=== PATIENT | female | born 1985 | race Caucasian/White ===

== ENCOUNTER 2023-05-29 07:31 | Outpatient (AMB) | payer OTHER, SELFPAY ==
--- NOTE | 2023-05-29 07:09 | A.OFFVIS_ITS ---
Intake Intake Visit Reasons: discuss leave of absence for anxiety-Iphone Allergies penicillin V Allergy (Unknown, Verified 07/20/22 08:14) unknown - childhood Penicillins [PENICILLINS] Allergy (Unknown, Unverified 07/20/22 08:14) UNKNOWN HPI discuss leave of absence for anxiety-Iphone HPI Details recently having panic attacks, had a seizure, thought to be due related to stress. Pt has seen her neurologist, they are switching seizure medication . Pt reports her neurologist will write a letter for keeping her out of work for a awhile (severe stress). The plan is for treating seizure disorder fist, then the anxiety. Pt reports that she has access to a therapist, if she wants one. Denies any SI or HI. Pt reports she will get her labs (ordered today), and will for up with me for a PE. Pt is currently looking for a new job. [facility] Family History Mother Mental health disorder Maternal Grandmother Mental health disorder Social History (Updated 07/20/22 @ 08:15 by Evangelina Wylie MA) Housing: House Alcohol intake: current Alcohol intake frequency: a few times a week Patient Tobacco Use Status: Former Tobacco user Quit Date: quit 9 years ago e-Cigarette/Vaping Use: Currently Using (sometimes ) Second Hand Smoke Exposure: No service: No Current occupational status: employed Current occupation: [employer] Current occupational exposures/hazards: No Cognitive needs: No Hearing needs: No Vision needs: No Assessment & Plan Assessment & Plan (1) Anxiety: Code(s): F41.9 - Anxiety disorder, unspecified Plan: continue same regime currently, will follow up, pt has access to a therapist, is currently looking for a new job (2) Seizure disorder: Code(s): G40.909 - Epilepsy, unspecified, not intractable, without status epilepticus Plan: follows up with neurology Orders: Orders Comprehensive [place]. Panel Fast Today Z00.00 - Encounter for general adult medical examination without abnormal findings Complete Blood Count Auto Diff Today Z00.00 - Encounter for general adult medical examination without abnormal findings TSH reflex Free T4 Today Z00.00 - Encounter for general adult medical examination without abnormal findings UA CC w/rflx Micro + Cult Today Z00.00 - Encounter for general adult medical examination without abnormal findings Lipid Panel Today Z00.00 - Encounter for general adult medical examination without abnormal findings Telehealth Telehealth Location of provider rendering services: practice address Location of patient: address on file Patient Identification confirmed using: Name, : Yes Telehealth method: video Patient verbally consented to treatment: Yes Patient verbally consented to billing insurance company: Yes Patient informed of any privacy concerns related to visit: Yes Minutes spent on Phone/Video with Pt.: 10 Coding Level of Care Code Tele Est Pt Level 3 (99317) Diagnoses Anxiety F41.9 Seizure disorder G40.909
== END 2023-05-29 08:17 | disposition home or self-care (01) ==
LOC: HO.HMGC 07:31
PROVIDERS: PCP Nurse Practitioner Family; Visit Provider Nurse Practitioner Family
DX: F41.9 Anxiety disorder, unspecified (principal); G40.909 Epilepsy, unspecified, not intractable, without status epilepticus
CPT/HCPCS: 99213

== ENCOUNTER 2023-08-21 07:04 | Outpatient (REF) | payer OTHER, SELFPAY ==
[2023-08-21 12:06] LABS: Appearance Urine Turbid; Color Urine Dark Yellow; Glucose Urine UA Negative (Negative); Leukocyte Esterase Urine Moderate (2+) (Negative); Nitrite Urine Negative (Negative); Specific Gravity - Urine >= 1.030 (1.005-1.025); UMIC TRIGGER UACC YES; Urine Blood Negative (Negative); Urine Ketones Trace mg/dL (Negative); Urine Protein 30 (1+) mg/dL (Neg-Trace)
[2023-08-21 12:07] LABS: MANUAL DIFF FLAG NO
[2023-08-21 12:14] LABS: Basophils Absolute Auto 0.1 X10*3/uL (0.0-0.2); Basophils Percent Auto 0.7 % (0-2); Eosinophils Absolute Auto 0.1 X10*3/uL (0.0-0.4); Eosinophils Percent Auto 1.2 % (0-4); Hematocrit 37.5 % (37.0-47.0); Hemoglobin 11.9 g/dl (12.0-16.0); Imm Gran Abs Auto 0.02 X10*3/uL (0.00-0.03); Imm Gran Pct Auto 0.2 % (0.0-0.4); Lymphocytes Percent Auto 23.9 % (20-40); Mean Corpuscular HGB Conc 31.7 g/dl (31.0-35.0); Mean Corpuscular Hemoglobin 27.9 pg (27.0-33.0); Mean Platelet Volume 10.3 fL (9.4-12.3); Monocytes Absolute Auto 0.5 X10*3/uL (0.1-1.2); Monocytes Percent Auto 5.4 % (2-11); Neutrophils Absolute Auto 5.8 x10*3/uL (2.0-8.3); Neutrophils Percent Auto 68.6 % (45-73); Platelet Count 350 X10*3/uL (160-400); Red Blood Count 4.26 X10*6/uL (4.20-5.50); Red Cell Distribution Width 13.3 % (11.0-16.0); White Blood Count 8.5 X10*3/uL (4.8-10.8)
[2023-08-21 12:38] LABS: Bacteria Urine 4+ (None Seen); RBC Urine 0-2 /HPF (0-2); UACC Culture Trigger YES; WBC Urine 21-50 /HPF (0-5)
[2023-08-21 13:13] LABS: Alanine Aminotransferase 13 U/L (0-31); Albumin Level 4.1 g/dL (3.5-5.0); Alkaline Phosphatase 82 U/L (39-117); Anion Gap 13 (12-20); Aspartate Amino Transferase 13 U/L (5-31); Bilirubin Total 0.2 mg/dL (0.0-1.0); Blood Urea Nitrogen 15 mg/dL (9-16); Carbon Dioxide 18 mmol/L (22-29); Chloride 113 mmol/L (96-108); Cholesterol 140 mg/dL (<200); Estimated Glomerular Filt Rate > 60; Glucose Fasting 94 mg/dL (60-99); HDL Cholesterol 44 mg/dL (>40); LDL Cholesterol Calculated 77 mg/dL (<100); Sodium 140 mmol/L (135-145); TSH reflex Free T4 0.97 uIU/mL (0.32-4.0); Total Protein 6.8 g/dL (6.5-8.0); Triglycerides 96 mg/dL (<150)
== END 2023-08-21 07:05 | disposition home or self-care (01) ==
LOC: HO.WFDLDS 07:04
PROVIDERS: Visit Provider Nurse Practitioner Family
DX: Z00.00 Encounter for general adult medical examination without abnormal findings (principal); Z13.6 Encounter for screening for cardiovascular disorders; R82.90 Unspecified abnormal findings in urine
CPT/HCPCS: 36415; 80053; 80061; 81001; 81003; 84443; 85025; 87086

== ENCOUNTER 2024-06-18 15:05 | Outpatient (AMB) | payer BC, SELFPAY ==
[2024-06-18 15:08] VITALS: BP 122/80; PULSE 112; RESP 16; TEMP 36.6; O2SAT 98; BMI 29.8
--- NOTE | 2024-06-18 15:08 | A.OFFPC_ITS ---
Vital Signs 06/18/24 15:08 Height 5 ft 2 in Weight 163 lb BMI 29.8 BP 122/80 Blood Pressure Location Lt brachial Position Sitting Respiration 16 Pulse 112 H Pulse Source Pulse Oximeter Temp 97.9 F Temp Source Oral Pulse Oximetry (%) 98 Oxygen Delivery Method Room Air Intake Visit Reasons: PE Intake Note: pt is here for PE Used Car [employer] Required: No Accompanied by: Self / Same As Patient Allergies penicillin V Allergy (Unknown, Verified 06/18/24 15:36) unknown - childhood Penicillins [PENICILLINS] Allergy (Unknown, Verified 06/18/24 15:36) UNKNOWN Medication List - Last Reconciled 06/18/24 by Hao Carey, [facility]- divalproex ER 750 mg PO DAILY lorazepam 0.5 mg PO DAILY PRN 30 days venlafaxine ER 75 mg PO DAILY venlafaxine ER 37.5 mg PO DAILY zonisamide 300 mg PO Tobacco use date assessed: 06/18/24 Dental Screening Dental Screen Date: 06/18/24 Did you have a dental visit in the last 12 months?: Yes Did you have a dental problem in the last 6 months where you did not have access to dental care?: No Was dental information given to patient?: Patient has dentist HPI PE HPI Details History of Present Illness The patient is a 38-year-old female presenting for a physical exam. She has a medical history of a seizure disorder for which she sees a neurologist. Additionally, she reports experiencing some anxiety. She denies any symptoms of shortness of breath, chest pain, abdominal pain, constipation, diarrhea, urinary symptoms, and depression. Referring to psych (OUT PT) for ? bipolar (changes in attitude very quickly). Health Maintenance Social History Review of Systems - Psychiatric: Reports anxiety. Denies d epression, suicidal ideation, and homicidal ideation. - Respiratory: Denies shortness of breat h. - Cardiac: Denies chest pain. - Gastrointestinal: Denies abdominal diane n, constipation, and diarrhea. - Genitourinary: Denies urinary symptoms . Physical Exam General: Cooperative, healthy appearing, comfortable, no acute distress and well developed, slight anxiety noted Orientation: Alert and oriented Limitations: No limitations Head: Normal to inspection Ears: TMs intact, no signs of erythema Nose: Normal external nose present Face and sinus: Normal facial exam Eyes: Appearance normal, both eyes and all related structures Neck: Normal visual inspection and Yes full ROM Respiratory: Normal respiratory effort and able to speak in complete sentences. Clear to auscultation bilaterally Cardiovascular: tachy and s1 s2. Faint systolic murmur noted GI: Normal to inspection. Soft to palpation and nontender Skin: No rashes or lesions noted Neuro: Patient oriented x3 Extremities: Normal to inspection, no edema noted Results - Tests: Electrocardiogram (EKG) planned due to tachycardia. Plan - Conduct an EKG to evaluate tachycardia . - Continue management under the care of a neurologist for seizure disorder. - No specific treatment plan was discuss ed for anxiety in this visit. Patient was informed and verbally consented to the use of an ambient scribe for clinic note documentation during this visit. Discussion Notes During the consultation, I discussed with the patient the need for an EKG to fur ther assess the observed tachycardia. I did not discuss specific treatments or management for her anxiety during this visit. Follow-up care and management of the seizure disorder are maintained under her neurologist's supervision. I confirmed the patient's understanding of the evaluation process and encouraged her to maintain ongoing care with her specialists. Patient Instructions - Proceed to get the EKG as discussed. - Continue following up with your neurol ogist for seizure management. - If new symptoms develop, or if current symptoms worsen, return for reevaluation. [facility] Surgical History No pertinent past surgical history Family History Mother Mental health disorder Maternal Grandmother Mental health disorder Social History Housing: House Alcohol intake: current Alcohol intake frequency: a few times a week Patient Tobacco Use Status: Former Tobacco user e-Cigarette/Vaping Use: Currently Using Second Hand Smoke Exposure: No service: No Current occupational status: employed Current occupation: [employer] Current occupational exposures/hazards: No Cognitive needs: No Hearing needs: No Vision needs: No Questionnaire PHQ-9 Over the last 2 weeks, how often have you been bothered by any of the following problems? 1. Little interest or pleasure in doing things: not at all 2. Feeling down, depressed, or hopeless: more than half the days 3. Trouble falling or staying asleep, or sleeping too much: nearly every day 4. Feeling tired or having little energy: nearly every day 5. Poor appetite or overeating: nearly every day 6. Feeling bad about yourself - or that you are a failure or have let yourself or your family down: not at all 7. Trouble concentrating on things, such as reading the newspaper or watching television: several days 8. Moving or speaking so slowly that other people could have noticed. Or the opposite - being so fidgety or restless that you have been moving around a lot more than usual: nearly every day 9. Thoughts that you would be better off or of hurting yourself in some way: not at all Total score: 15 Depression Screening Interpretation: Positive (refuses therapist, denies any si or hi, referring to outpt psych, ? bipolar component.) Depression Screening Follow-up: Existing condition Depression Screening Done: Yes 06008 - PHQ-9 Billing: Yes Source: Developed by Drs. Milton Doyle, Charlene Clemons, Steven Clemons and colleagues, with an educational david from [employer]. Thrive Questionnaire Date Thrive assessed: 06/18/24 I am a: Patient What is your living situation today?: I have a steady place to live Within the past 12 months, did the food you bought not last and you didn't have the money to get more?: Never true Within the past 12 months, did you worry whether your food would run out before you got money to buy more?: Never true Do you have trouble paying for medicines?: No Do you have trouble getting transportation to medical appointments?: No Do you have trouble paying your heating and electricity bill?: No Do you have trouble taking care of your child, family member or friend?: No Do you have trouble with day-to-day activities such as bathing, preparing meals, shopping, managing finances, etc.?: No Are you currently unemployed and looking for a job?: No Are you interested in more education?: No Please select the resources that you would like help with: None Currently or been in a relationship where the following occur: No concerns reported THRIVE Score: 0 AUDIT C Alcohol Use Questionnaire (AUDIT-C) 1. How often do you have a drink containing alcohol?: Monthly or less 2. How many drinks containing alcohol do you have on a typical day when you are drinking?: 1 or 2 3. How often do you have six or more drinks on one occasion?: Never Total Score: 1 Score Reviewed/Action Taken: Yes KD-7 AMB Questionnaire KD-7 Date KD - 7 assessed: 06/18/24 Feeling nervous, anxious, or on edge: 3 = Nearly every day Not being able to stop or control worryin = More than half the days Worrying too much about different things: 2 = More than half the days Trouble relaxin = More than half the days Being so restless that it is hard to sit still: 0 = Not at all Becoming easily annoyed or irritable: 3 = Nearly every day Feeling afraid as if something awful might happen: 0 = Not at all Total KD-7 score (0-4 normal; 5-9 mild; 10-14 moderate; 15-21 severe): 12 Source: Developed by Drs. Milton Doyle, Charlene Clemons, Steven Clemons and colleagues, with an educational david from [employer]. KD-7 Assessment Billing KD-7 Assessment Tool: KD-7 Assessment 93546 Physical exam (Primary Care) Vital Signs: Last Vital Signs Temp 97.9 F 06/18/24 15:08 Pulse 112 H 06/18/24 15:08 Resp 16 06/18/24 15:08 BP 122/80 06/18/24 15:08 Pulse Ox 98 06/18/24 15:08 Oxygen Delivery Method Room Air 06/18/24 15:08 BMI result Body Mass Index 29.8 Tobacco/Smoking Status: Tobacco use Status Tobacco use date assessed 06/18/24 06/18/24 15:12 Patient Tobacco Use Status Former Tobacco user 06/18/24 15:12 e-Cigarette/Vaping Use Currently Using 06/18/24 15:12 PHQ-9: PHQ-9 Score PHQ-9: Total score 15 06/18/24 15:12 Depression Screening Interpretation: Positive (refuses therapist, denies any si or hi, referring to outpt psych, ? bipolar component.) Depression Screening Follow-up: Existing condition Thrive Assessment: Date of Thrive Assessment Date Thrive assessed 06/18/24 06/18/24 15:12 Currently or been in a relationship where the following occur: No concerns reported Coding Level of Care Code Est Pt Prev Care 18-39y(47046) Diagnoses Physical exam Z00. Psychiatric disorder F99 Additional Codes KD-7 Assessment Billing - KD-7 Assessment Tool: KD-7 Assessment 00463 ([id number]) PHQ-9 - 55017 - PHQ-9 Billing: Yes ([id number]) Assessment & Plan Assessment & Plan (1) Physical exam: Code(s): Z00.00 - Encounter for general adult medical examination without abnormal findings Category: Medical (2) Psychiatric disorder: Code(s): F99 - Mental disorder, not otherwise specified Category: Medical Plan . Orders: Orders Complete Blood Count Auto Diff Today Z00.00 - Encounter for general adult medical examination without abnormal findings Lipid Panel Today Z00.00 - Encounter for general adult medical examination without abnormal findings Comprehensive [place]. Panel Fast Today Z00.00 - Encounter for general adult medical examination without abnormal findings TSH reflex Free T4 Today Z00.00 - Encounter for general adult medical examination without abnormal findings UA CC w/rflx Micro + Cult Today Z00.00 - Encounter for general adult medical examination without abnormal findings Referrals Psychiatry Outpatient Consultation Service F99 - Mental disorder, not otherwise specified
--- OUTSIDE RECORDS SUMMARY | 2024-06-18 17:34 | XMS_ITS | Clinical Summary ---
Author Organization [facility] Address [address] [facility] [place] [place] [address] Care Team Providers Care Senior Systems Analyst Name Role Phone No, Pcp ZOO CARETAKER Primary Care Provider Unavailabl e Allergies Active Allergy Reactions Criticality Noted Date Comments Penicillins Anaphylaxis High 07/20/2020 Medications divalproex (DEPAKOTE) 250 MG 24 hr tablet Take 250 mg by mouth daily. Active venlafaxine (EFFEXOR) 75 MG tablet Take 75 mg by mouth 2 (two) times a day. Active lorazepam (ATIVAN) 2 MG tablet Take 2 mg by mouth every 6 (six) hours as needed for anxiety. Active Social History Tobacco Use Types Packs/Day Years Used Date Smoking Tobacco: Never Assessed Comments Unknown Sex and Gender Information Value Date Recorded Sex Assigned at Not on file Legal Sex Female 8:06 AM EST Gender Identity Not on file Sexual Orientation Not on file Last Filed Vital Signs Vital Sign Reading Time Taken Comments Blood Pressure - - Pulse 86 07/20/2020 9:30 AM EST Temperature 36.3 ??C (97.3 ??F) 07/20/2020 9:30 AM ES T Respiratory Rate 18 07/20/2020 9:30 AM EST Oxygen Saturation 99% 07/20/2020 9:30 AM EST Inhaled Oxygen Concentration - - Weight - - Height - - Body Mass Index - - Plan of Treatment Health Maintenance Due Date Last Done Comments Depression: Screening Annual ly using PHQ-2/9 in Adults 18 yrs or above (or HM Modifier)([facility]) 2002 Hepatitis C Virus Infection in Adolescents and Adults: Screening (or Modifier) ([facility]) 2002 SDNC Screening Reminder: Diamond roque for all adults ([facility]) 2002 Tobacco Smoking Cessation: i n Adults excluding Women: Behavioral and Pharmacotherapy Interventions ([facility]) 2002 DTaP/Tdap/Td Vaccines ([facility]) (1 - Tdap) 09/13/2003 Lipid Screening: Once for Wo men aged 20 to 45 yrs ([facility]) 2004 Cervical Cancer Screenin 1-65 yrs of age (or Modifier) 2005 Cervical Cancer Screening: P ap every 3 yrs pts age 21-65 2005 Cervical Cancer: Pap Screeni ng with Modifier timing ([facility]) 2005 Cervical Cancer: hrHPV alone or with cotesting Pap for Pts 30-65yrs screening every 5yrs ([facility]) 2005 Flu Vaccination: Yearly for ages 18mos through 64 years (or Modifier)([facility]) 12/27/2023 COVID-19 Vaccine Screening: Initial Series and Booster Status ([facility]) ( - 2023- season) 2024 Zoster/Shingles Vaccine Seri es Screening: Adults aged 18+ yrs (or HM Modifiers)([facility]) (1 of 2) 2034 Pneumococcal Vaccination Scr eening: Pts 0-19 & 19-64 yrs of age ([facility]) Aged Out No longer eligible based on patient's age to complete this topic Medical Devices Not on file Insurance [employer] Care Teams Senior Systems Analyst Relationship Specialty Start Date End Date No, Pcp, ZOO CARETAKER N/A Do not use PCP - General Family Medicine 07/24/20
== END 2024-06-18 16:04 | disposition home or self-care (01) ==
PROVIDERS: PCP Nurse Practitioner Family; Visit Provider Nurse Practitioner Family
DX: Z00.00 Encounter for general adult medical examination without abnormal findings (principal); F99 Mental disorder, not otherwise specified

== ENCOUNTER → 2024-06-18 15:05 | Outpatient (BNVA) | payer OTHER, SELFPAY | PROVIDERS: PCP Nurse Practitioner Family; Visit Provider Nurse Practitioner Family | DX: Z00.00 Encounter for general adult medical examination without abnormal findings (principal); F99 Mental disorder, not otherwise specified; G40.909 Epilepsy, unspecified, not intractable, without status epilepticus | CPT/HCPCS: 96127 ==

== ENCOUNTER 2024-08-26 07:10 | Outpatient (AMB) | payer BC, SELFPAY ==
--- NOTE | 2024-08-26 07:28 | A.OFFPC_ITS ---
Intake Visit Reasons: [place] Paperwork-reschedule Allergies penicillin V Allergy (Unknown, Verified 08/26/24 07:28) unknown - childhood Penicillins [PENICILLINS] Allergy (Unknown, Verified 08/26/24 07:28) UNKNOWN Medication List - Last Reconciled 08/26/[address] [facility] divalproex ER 750 mg PO DAILY lorazepam 0.5 mg PO DAILY PRN 30 days venlafaxine ER 75 mg PO DAILY venlafaxine ER 37.5 mg PO DAILY zonisamide 300 mg PO Tobacco use date assessed: 06/18/24 Dental Screening Dental Screen Date: 06/18/24 HPI [place] Paperwork-reschedule HPI Details History of Present Illness The patient is a 38-year-old female presenting with concerns primarily related to Family and Medical Leave Act ([place]) paperwork for management of her stress-related exacerbations of seizure disorder. She experiences increased stress at home and in house work, contributing to a lowered seizure threshold. The patient has been managing her condition with difficulty due to these stressors and reports improved capability when working from home. This adaptation is suggested, allowing her to work remotely for at least the next four months to manage stress adequately. Review of Systems - Neurological: Reports exacerbations in seizure activity due to stress. - Psychological: Reports increased stres s at home and work; no other symptoms reported or denied for other systems. 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 This environment is expected to reduce stress levels and positively impact her health by preventing further exacerbations. Discussion Notes During our discussion, I explained that the primary focus of her treatment plan will be to reduce stress levels to manage her seizure disorder effectively. By working from home, she will be able to minimize the impact of these stressors. We discussed the benefits of this arrangement, and it was agreed that remote work would provide an optimal atmosphere for stress reduction. The completion of [place] paperwork will support her in this endeavor. No other management strategies or diagnostic testing were deemed necessary at this point based on her current condition and our discussion. 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 - Continue to manage stress levels throu gh relaxation techniques and home environment adjustments. - Return for a follow-up if there is a c hange in seizure frequency or severity. PFSH Surgical History No pertinent past surgical history Family History Mother Mental health disorder Maternal Grandmother Mental health disorder Social History Housing: House Alcohol intake: current Alcohol intake frequency: a few times a week Patient Tobacco Use Status: Former Tobacco user e-Cigarette/Vaping Use: Currently Using Second Hand Smoke Exposure: No service: No Current occupational status: employed Current occupation: [employer] Current occupational exposures/hazards: No Cognitive needs: No Hearing needs: No Vision needs: No Questionnaire Thrive Questionnaire Date Thrive assessed: 06/18/24 I am a: Patient What is your living situation today?: I have a steady place to live Within the past 12 months, did the food you bought not last and you didn't have the money to get more?: Never true Within the past 12 months, did you worry whether your food would run out before you got money to buy more?: Never true Do you have trouble paying for medicines?: No Do you have trouble getting transportation to medical appointments?: No Do you have trouble paying your heating and electricity bill?: No Do you have trouble taking care of your child, family member or friend?: No Do you have trouble with day-to-day activities such as bathing, preparing meals, shopping, managing finances, etc.?: No Are you currently unemployed and looking for a job?: No Are you interested in more education?: No Please select the resources that you would like help with: None Currently or been in a relationship where the following occur: No concerns reported THRIVE Score: 0 KD-7 AMB Questionnaire KD-7 Date KD - 7 assessed: 06/18/24 Source: Developed by Drs. Milton Doyle, Charlene Clemons, Steven Clemons and colleagues, with an educational david from [employer]. Physical exam (Primary Care) Tobacco/Smoking Status: Tobacco use Status Tobacco use date assessed 06/18/24 06/18/24 15:12 Patient Tobacco Use Status Former Tobacco user 06/18/24 15:12 e-Cigarette/Vaping Use Currently Using 06/18/24 15:12 Thrive Assessment: Date of Thrive Assessment Date Thrive assessed 06/18/24 06/18/24 15:12 Currently or been in a relationship where the following occur: No concerns reported Telehealth Telehealth Telehealth Platform: [employer] Location of provider rendering services: practice address Location of patient: address on file Patient Identification confirmed using: Name, : Yes Telehealth method: video Patient verbally consented to treatment: Yes Patient verbally consented to billing insurance company: Yes Patient informed of any privacy concerns related to visit: Yes Minutes spent on Phone/Video with Pt.: 12 Coding Level of Care Code Tele Est Pt Level 3 (41926) Diagnoses Seizure disorder G40.909 Anxiety F41.9 Assessment & Plan Assessment & Plan (1) Seizure disorder: Code(s): G40.909 - Epilepsy, unspecified, not intractable, without status epilepticus Category: Medical (2) Anxiety: Code(s): F41.9 - Anxiety disorder, unspecified Category: Medical Plan .
== END 2024-08-26 08:04 | disposition home or self-care (01) ==
LOC: HO.HMCC 07:11
PROVIDERS: PCP Nurse Practitioner Family; Visit Provider Nurse Practitioner Family
DX: G40.909 Epilepsy, unspecified, not intractable, without status epilepticus (principal); F41.9 Anxiety disorder, unspecified

== ENCOUNTER → 2024-08-26 07:10 | Outpatient (BNVA) | payer BC, SELFPAY | PROVIDERS: PCP Nurse Practitioner Family; Visit Provider Nurse Practitioner Family ==

== ENCOUNTER 2024-12-15 13:29 | Outpatient (AMB) | payer BC, SELFPAY ==
--- NOTE | 2024-12-15 13:30 | MHC.OFFVISPS ---
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 Pt has co-morbid seizure disorder. Pt reports her mind is always busy; she obsesses about a wide range of things. She reports I am never depressed. she reports anxiety every day; frequent panic attacks; she says she keeps her schedule in her head and has mapped out her whole day and how long it will take to do each item. she reports if that routine is interrupted she will get very irritable and or panic. she is very sensitive to noise and activity; she is easily overwhelmed by external stimuli. she will have repetitive thoughts when she is anxious. She reports the anxiety and mental rituals have been a symptoms for years; she was not formerly diagnosed with anxiety until age 16 when she had a severe panic attack and finally told by a doctor that she had anxiety. She reports she has found many ways to cope with the woory and anxiety. She gives the example that in years past she would become so bsessed with something being unsafe that she could not control herself checking or demanding that her ex check such as a roof over a porch. She noticed the sliding door did not close easily and she became convinced that the dolores would collapse despite knowing it wa intact; she checked and made her ex check daily until one day she felt she coudln't stand it and made him remove the roof from the porch; she gave several other examples of the same type of senario. she says its not quite a bad now but she avoids situations and makes adjustments not to have to experince severe obsessions; she reports she often will have panic attacks that last 30 minutes or more and she just waits them out. She is often miserable. She reports worrying if she has shut a door but [facility] so she will just repeat in her head that she can check it in 20 minutes. Pt has a camera set up for her new dog and she checks it several times day. She has a strong need for quiet and feels less able to cope by the evening. She had her first seizure at age 16 and then none until 11 yrs ago when she was . she has seen a neurologist at [facility] for years but apparently they closed her case due to no in person visit for a year althogh they were actively cross titrating her meds during that year. She has been re-referred but appt pending. she has been dx non-epileptic seizures. she says she has had an MRI that was normal; those records are not available today. She denies a history of suicide attempts Past Psychiatric History: No IPLOC Subjective Subjective Subjective Medication Compliance: Yes Side effects from medications: No Review of Systems Medical Review of Systems: unchanged Mental Status Exam Mental Status Exam Patient Appearance: Well Grooomed and Appropriate Patient Orientation: Person, Place, Time and Situation Level of Consciousness: Awake and Appropriate Patient Behavior: Appropriate and Cooperative Mood Description: Anxious and Expansive Affect Description: Anxious and Expansive Patient Cognition Impaired: No Ability to Follow Directions: Good Speech Pattern: Clear, Excessive and Pressured Memory Description: Intact Hallucinations: None Delusions: Not Present Thought Process: Intact, Racing and Distracted Thought Content: positive for Intact, positive for Obsessional Thoughts and positive for Loose Associations Judgement: Good Assessment and Plan Assessment & Plan (1) Obsessive-compulsive disorder with good or fair insight: Status: Acute Code(s): F42.9 - Obsessive-compulsive disorder, unspecified Plan rule out Bipolar II rule out ADHD trial increase in venlafaxine xr to 150mg daily consider prozac or zoloft in future retun in 4-6 weeks Medications: New lorazepam (Ativan) 1 mg PO BEDTIME PRN 30 tabs 1RF anxiety venlafaxine ER 150 mg PO BEDTIME 30 caps 1RF Discontinued lorazepam Discontinued Reason: Doctor's Order 0.5 mg PO DAILY 30 days PRN 30 tabs 2RF anxiety F41.9 - Anxiety disorder, unspecified Counseling and coordination of Care Pt. Self Management counseling: Mod caffeine/ETOH intake, Nutrition education and improvement, Sleep hygiene, General coping skills and Problem solving Medication management counseling: Effectiveness, Side effects, Dosing range, Duration, Drug interaction and Adherence Diagnosis and Prognosis Counseling: Accuracy of diagnosis, Prognosis over time, Impact of diagnosis on life functions and Adequacy of current interventions Details: I spent 80 minutes reviewing the record, seeing the patient and documenting in the medical record. Counseling provided to the patient/caregiver as outlined below. Addressed patient/caregiver concerns regarding current medication regime including effective adherence. Addressed patient/caregiver concerns regarding diagnosis and prognosis including accuracy of diagnosis, prognosis over time, impact of diagnosis. Addressed patient/caregiver concerns regarding impact of recent stressors. PFSH Surgical History No pertinent past surgical history Family History Mother Mental health disorder Maternal Grandmother Mental health disorder Social History Housing: House Alcohol intake: current Alcohol intake frequency: a few times a week Patient Tobacco Use Status: Former Tobacco user e-Cigarette/Vaping Use: Currently Using Second Hand Smoke Exposure: No service: No Current occupational status: employed Current occupation: [employer] Current occupational exposures/hazards: No Cognitive needs: No Hearing needs: No Vision needs: No Social History: lives w mother, mother's BF and pts 11 yr old daughter; plan to have own apartment in January. 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
--- OUTSIDE RECORDS SUMMARY | 2024-12-15 14:13 | XMS_ITS | Clinical Summary ---
Author Organization [facility] [place] [facility] [employer] Address [address] [facility] [place] [address] Care Team Providers Care Personnel Clerk Name Role Phone No, Pcp DIRECTOR [employer]TER[employer] Primary Care Provider Unavailabl e Allergies Active [...] 86 07/20/2020 9:30 AM EST Temperature 36.3 C (97.3 F) 07/20/2020 9:30 AM EST Respiratory Rate 18 07/20/2020 9:30 AM EST Oxygen Saturation 99% 07/20/2020 9:30 AM EST Inhaled Oxygen Concentration - - Weight - - Height - - Body Mass Index - - Plan of Treatment Health Maintenance Due Date Last Done Comments Depression: Screening Annual ly using PHQ-2/9 in Adults 18 yrs or above (or HM Modifier)([facility]) 2002 Hepatitis C Virus Infection in Adolescents and Adults: Screening (or Modifier) ([facility]) 2002 SDID Screening Reminder: Diamond jude for all adults ([facility]) 2002 Tobacco Smoking Cessation: i n Adults excluding Women: Behavioral and Pharmacotherapy Interventions ([facility]) 2002 DTaP/Tdap/Td Vaccines ([facility]) (1 - Tdap) 09/13/2003 Cervical Cancer Screenin 1-65 yrs of age (or Modifier) 2005 Cervical Cancer Screening: P ap every 3 yrs pts age 21-65 2005 Cervical Cancer: Pap Screeni ng with Modifier timing ([facility] ) 2005 Cervical Cancer: hrHPV alone or with cotesting Pap for Pts 30-65yrs screening every 5yrs ([facility] ) 2005 COVID-19 Vaccine Screening: Initial Series and Booster Status ([facility]) ( - 2023- season) 2024 Flu Vaccination: Yearly for ages 18mos through 64 years (or Modifier)([facility]) 12/26/2024 Zoster/Shingles Vaccine Seri es Screening: Adults aged 18+ yrs (or HM Modifiers)([facility]) (1 of 2) 2034 Pneumococcal Vaccination Scr eening: Pts 0-19 & 19-49 yrs of age ([facility]) Aged Out No longer eligible based on patient's age to complete this topic Medical Devices Not on file Insurance [employer] Care Teams Personnel Clerk Relationship Specialty Start Date End Date No, Pcp, DIRECTOR [employer] N/A Do not use PCP - General Family Medicine 07/24/20
== END 2024-12-15 14:42 | disposition home or self-care (01) ==
LOC: HO.HOP 13:29
PROVIDERS: PCP Nurse Practitioner Family; Visit Provider Clinical Nurse Specialist Psychiatric/Mental Health
DX: F42.9 Obsessive-compulsive disorder, unspecified (principal)
CPT/HCPCS: 90792

== ENCOUNTER → 2024-12-15 13:29 | Outpatient (BNVA) | payer BC, SELFPAY | PROVIDERS: PCP Nurse Practitioner Family; Visit Provider Clinical Nurse Specialist Psychiatric/Mental Health | DX: F42.9 Obsessive-compulsive disorder, unspecified (principal) | CPT/HCPCS: 90792 ==

== ENCOUNTER 2024-12-30 06:45 | Outpatient (AMB) | payer BC, SELFPAY ==
--- NOTE | 2024-12-30 07:20 | A.OFFPC_ITS ---
Intake Visit Reasons: FMLA extension Allergies penicillin V Allergy (Unknown, Verified 12/30/24 07:20) unknown - childhood Penicillins (PENICILLINS) Allergy (Unknown, Verified 12/30/24 07:20) UNKNOWN Medication List - Last Reconciled 12/30/24 by HECTOR Hough divalproex ER 750 mg PO DAILY lorazepam (Ativan) 1 mg PO BEDTIME PRN venlafaxine ER 150 mg PO BEDTIME zonisamide 300 mg PO Tobacco use date assessed: 06/18/24 Dental Screening Dental Screen Date: 06/18/24 HPI FMLA extension HPI Details History of Present Illness The patient is a 39-year-old female presenting for a telehealth visit to discuss work accommodations due to her seizure disorder. The patient has a history of seizures, which are exacerbated by stress, particularly in environments with many people and movement, such as her office setting. She is currently on seizure medication and follows up with a neurologist. Recently, she has not experienced any seizure activity, shortness of breath, blurred vision, or headaches. The patient was recently diagnosed with obsessive-compulsive disorder and there is a possibility of attention-deficit/hyperactivity disorder. Review of Systems - Neurological: Denies recent seizure ac tivity, blurred vision, or headaches. - Respiratory: Denies shortness of breat h. 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 I will complete the necessary paperwork to facilitate her [id number] arrangement. We will revisit her work situation in 12 months to assess the need for continued accommodations. Discussion Notes I discussed with the patient the importance of minimizing stress to prevent seizures and recommended that she continue working from home. I will complete the necessary paperwork to support her [id number] arrangement for the next 12 months, and we will reassess this plan in a year. Patient Instructions - Continue working from home to reduce s tress and prevent seizures. - Follow up with your neurologist as andrey medley. - We will reassess your work situation i n 12 months. -follow up with therapist, psychiatrist, neurologist [facility] Surgical History No pertinent past surgical history Family History Mother Mental health disorder Maternal Grandmother Mental health disorder Social History Housing: House Alcohol intake: current Alcohol intake frequency: a few times a week Patient Tobacco Use Status: Former Tobacco user e-Cigarette/Vaping Use: Currently Using Second Hand Smoke Exposure: No service: No Current occupational status: employed Current occupation: [employer] Current occupational exposures/hazards: No Cognitive needs: No Hearing needs: No Vision needs: No Questionnaire Thrive Questionnaire Date Thrive assessed: 06/18/24 I am a: Patient What is your living situation today?: I have a steady place to live Within the past 12 months, did the food you bought not last and you didn't have the money to get more?: Never true Within the past 12 months, did you worry whether your food would run out before you got money to buy more?: Never true Do you have trouble paying for medicines?: No Do you have trouble getting transportation to medical appointments?: No Do you have trouble paying your heating and electricity bill?: No Do you have trouble taking care of your child, family member or friend?: No Do you have trouble with day-to-day activities such as bathing, preparing meals, shopping, managing finances, etc.?: No Are you currently unemployed and looking for a job?: No Are you interested in more education?: No Please select the resources that you would like help with: None Currently or been in a relationship where the following occur: No concerns reported THRIVE Score: 0 KD-7 AMB Questionnaire KD-7 Date KD - 7 assessed: 06/18/24 Source: Developed by Drs. Milton Doyle, Charlene Clemons, Steven Clemons and colleagues, with an educational david from [employer]. Physical exam (Primary Care) Tobacco/Smoking Status: Tobacco use Status Tobacco use date assessed 06/18/24 12/09/24 10:46 Patient Tobacco Use Status Former Tobacco user 12/09/24 10:46 e-Cigarette/Vaping Use Currently Using 12/09/24 10:46 Thrive Assessment: Date of Thrive Assessment Date Thrive assessed 06/18/24 12/09/24 10:46 Currently or been in a relationship where the following occur: No concerns reported Telehealth Telehealth Telehealth [facility]: [facility] Location of provider rendering services: practice address Location of patient: address on file Patient Identification confirmed using: Name, : Yes Telehealth method: video Patient verbally consented to treatment: Yes Patient verbally consented to billing insurance company: Yes Patient informed of any privacy concerns related to visit: Yes Minutes spent on Phone/Video with Pt.: 10 Coding Level of Care Code Tele Est Pt Level 3 (29434) Diagnoses Obsessive-compulsive disorder with good or fair insight F42.9 Seizure disorder G40.909 Anxiety F41.9 Assessment & Plan Assessment & Plan (1) Obsessive-compulsive disorder with good or fair insight: Code(s): F42.9 - Obsessive-compulsive disorder, unspecified Category: Medical (2) Seizure disorder: Code(s): G40.909 - Epilepsy, unspecified, not intractable, without status epilepticus Category: Medical (3) Anxiety: Code(s): F41.9 - Anxiety disorder, unspecified Category: Medical Plan .
== END 2024-12-30 07:59 | disposition home or self-care (01) ==
LOC: HO.HMCC 06:46
PROVIDERS: PCP Nurse Practitioner Family; Visit Provider Nurse Practitioner Family
DX: F42.9 Obsessive-compulsive disorder, unspecified (principal); G40.909 Epilepsy, unspecified, not intractable, without status epilepticus; F41.9 Anxiety disorder, unspecified

== ENCOUNTER → 2025-01-06 08:44 | Outpatient (REF) | payer BC, SELFPAY ==
--- OUTSIDE RECORDS SUMMARY | 2025-01-06 09:00 | XMS_ITS | Clinical Summary ---
Author Organization [facility] [employer] Address [address] [facility] [place] [address] Care Team Providers Care Hematology Nurse Name Role Phone No, Pcp PRODUCE MANAGER Primary Care Provider Unavailabl e Allergies Active [...] Adults 18 yrs or above (or HM Modifier)([facility]) 2002 Hepatitis C Virus Infection in Adolescents and Adults: Screening (or Modifier) ([facility]) 2002 SDNV Screening Reminder: Diamond jude for all adults ([facility]) 2002 Tobacco Smoking Cessation: i n Adults excluding Women: Behavioral and Pharmacotherapy Interventions ([facility]) 2002 DTaP/Tdap/Td Vaccines ([facility]) (1 - Tdap) 09/13/2003 Cervical Cancer Screenin 1-65 yrs of age (or Modifier) 2005 Cervical Cancer Screening: P ap every 3 yrs pts age 21-65 2005 Cervical Cancer: Pap Screeni ng with Modifier timing ([facility] ) 2005 Cervical Cancer: hrHPV alone or with cotesting Pap for Pts 30-65yrs screening every 5yrs ([facility] ) 2005 COVID-19 Vaccine Screening: Initial Series and Booster Status ([facility]) ( - 2023- season) 2024 Flu Vaccination: Yearly for ages 18mos through 64 years (or Modifier)([facility]) 12/26/2024 Zoster/Shingles Vaccine Seri es Screening: Adults aged 18+ yrs (or HM Modifiers)([facility]) (1 of 2) 2034 Pneumococcal Vaccination Scr eening: Pts 0-19 & 19-49 yrs of age ([facility]) Aged Out No longer eligible based on patient's age to complete this topic Medical Devices Not on file Insurance [employer] Care Teams Hematology Nurse Relationship Specialty Start Date End Date No, Pcp, PRODUCE MANAGER N/A Do not use PCP - General Family Medicine 07/24/20
[2025-01-06 09:02] LABS: MANUAL DIFF FLAG NO
--- NOTE | 2025-01-06 09:04 | ECG_ITS ---
Test Reason : TACHYCARDIA Blood Pressure : */* mmHG Vent. Rate : 78 BPM Atrial Rate : 78 BPM P-R Int : 128 ms QRS Dur : 88 ms QT Int : 376 ms P-R-T Axes : 40 40 37 degrees QTcB Int : 428 ms Normal sinus rhythm Normal ECG No previous ECGs available Referred By: Tasneem Balderrama Electronically Signed By: Mark Anthony Menchaca
[2025-01-06 09:38] LABS: Hematocrit 36.6 % (37.0-47.0); Hemoglobin 11.5 g/dl (12.0-16.0); Imm Gran Abs Auto 0.05 X10*3/uL (0.00-0.03); Imm Gran Pct Auto 0.4 % (0.0-0.4); Lymphocytes Absolute Auto 2.7 X10*3/uL (1.2-4.9); Mean Corpuscular HGB Conc 31.4 g/dl (31.0-35.0); Mean Corpuscular Hemoglobin 27.3 pg (27.0-33.0); Mean Corpuscular Volume 86.7 fL (80.0-98.0); NRBC Abs Auto 0.000 X10*3/uL (0.0-0.012); NRBC Pct Auto 0.0 /100WBC (0.0-0.2); Platelet Count 388 X10*3/uL (160-400); Red Blood Count 4.22 X10*6/uL (4.20-5.50); White Blood Count 11.3 X10*3/uL (4.8-10.8)
[2025-01-06 10:30] LABS: Alanine Aminotransferase 21 U/L (0-31); Albumin Level 4.4 g/dL (3.5-5.0); Alkaline Phosphatase 84 U/L (39-117); Anion Gap 14 (12-20); Aspartate Amino Transferase 24 U/L (5-31); Blood Urea Nitrogen 17 mg/dL (9-16); Calcium 9.0 mg/dL (8.4-10.2); Carbon Dioxide 24 mmol/L (22-29); Chloride 107 mmol/L (96-108); Cholesterol 175 mg/dL (<200); Estimated Glomerular Filt Rate > 60; HDL Cholesterol 55 mg/dL (>40); Magnesium 2.0 mg/dL (1.6-2.6); Potassium 4.5 mmol/L (3.3-5.1); Sodium 140 mmol/L (135-145); Total Protein 7.3 g/dL (6.5-8.0); Triglycerides 199 mg/dL (<150)
[2025-01-06 11:52] LABS: Folate 10.6 ng/mL (> or = 4.0); Vitamin B12 1173 pg/mL (200-900)
== END ==
LOC: HO.CARD 08:44
PROVIDERS: PCP Nurse Practitioner Family; Visit Provider Clinical Nurse Specialist Psychiatric/Mental Health
DX: R00.0 Tachycardia, unspecified (principal); F41.9 Anxiety disorder, unspecified; Z79.899 Other long term (current) drug therapy
CPT/HCPCS: 36415; 80053; 80061; 82607; 82746; 83735; 84443; 85025; 93005

== ENCOUNTER → 2025-01-06 09:04 | Outpatient (BNV) | payer BC, SELFPAY | PROVIDERS: PCP Nurse Practitioner Family; Visit Provider Internal Medicine Cardiovascular Disease | DX: R00.0 Tachycardia, unspecified (principal) | CPT/HCPCS: 93010 ==

== ENCOUNTER 2025-01-08 13:45 | Outpatient (AMB) | payer BC, SELFPAY ==
--- NOTE | 2025-01-08 13:03 | MHC.OFFVISPS ---
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 She has co-morbid seizure disorder. She states increasing the effexor did not help at all. she felt slightly more irritable initially; she reports her mother, aunt and daughter all take prozac for anxiety and it help. she would like to try it. We discussed cross titration with prozac as she can not stop effexor abruptly. she verablized understanding. From first appt/evaluation. Pt reports her mind is always busy; she obsesses about a wide range of things. She reports I am never depressed. she reports anxiety every day; frequent panic attacks; she says she keeps her schedule in her head and has mapped out her whole day and how long it will take to do each item. she reports if that routine is interrupted she will get very irritable and or panic. she is very sensitive to noise and activity; she is easily overwhelmed by external stimuli. she will have repetitive thoughts when she is anxious. She reports the anxiety and mental rituals have been a symptoms for years; she was not formerly diagnosed with anxiety until age 16 when she had a severe panic attack and finally told by a doctor that she had anxiety. She reports she has found many ways to cope with the woory and anxiety. She gives the example that in years past she would become so bsessed with something being unsafe that she could not control herself checking or demanding that her ex check such as a roof over a porch. She noticed the sliding door did not close easily and she became convinced that the dolores would collapse despite knowing it wa intact; she checked and made her ex check daily until one day she felt she coudln't stand it and made him remove the roof from the porch; she gave several other examples of the same type of senario. she says its not quite a bad now but she avoids situations and makes adjustments not to have to experince severe obsessions; she reports she often will have panic attacks that last 30 minutes or more and she just waits them out. She is often miserable. She reports worrying if she has shut a door but works from home and is never very far fromhome so she will just repeat in her head that she can check it in 20 minutes. Pt has a camera set up for her new dog and she checks it several times day. She has a strong need for quiet and feels less able to cope by the evening. She had her first seizure at age 16 and then none until 11 yrs ago when she was . she has seen a neurologist at [facility] for years but apparently they closed her case due to no in person visit for a year althogh they were actively cross titrating her meds during that year. She has been re-referred but appt pending. she has been dx non-epileptic seizures. she says she has had an MRI that was normal; those records are not available today. She denies a history of suicide attempts Past Psychiatric History: No IPLOC Subjective Subjective Subjective Medication Compliance: Yes Side effects from medications: No Review of Systems Medical Review of Systems: unchanged Mental Status Exam Mental Status Exam Patient Appearance: Well Grooomed and Appropriate Patient Orientation: Person, Place, Time and Situation Level of Consciousness: Awake and Appropriate Patient Behavior: Appropriate and Cooperative Mood Description: Anxious and Expansive Affect Description: Anxious and Expansive Patient Cognition Impaired: No Ability to Follow Directions: Good Speech Pattern: Clear, Excessive and Pressured Memory Description: Intact Hallucinations: None Delusions: Not Present Thought Process: Intact, Racing and Distracted Thought Content: positive for Intact, positive for Obsessional Thoughts and positive for Loose Associations Judgement: Good Telehealth Telehealth Telehealth Platform: Other (please specify) ([email or web address]) Location of provider rendering services: practice address Location of patient: address on file Patient Identification confirmed using: Name, : Yes Telehealth method: video Patient verbally consented to treatment: Yes Patient verbally consented to billing insurance company: Yes Patient informed of any privacy concerns related to visit: Yes Minutes spent on Phone/Video with Pt.: 26 Assessment and Plan Assessment & Plan (1) Obsessive-compulsive disorder with good or fair insight: Status: Acute Code(s): F42.9 - Obsessive-compulsive disorder, unspecified Plan rule out Bipolar II rule out ADHD decrease effexor to 75mg daily x 14 days then 37.5mg daily x 14 days start prozac 20mg daily retun in 4-6 weeks Medications: New venlafaxine ER 75 mg PO DAILY 14 caps 0RF fluoxetine (Prozac) 20 mg PO DAILY 30 caps 1RF 30 days venlafaxine ER 37.5 mg PO DAILY 14 caps 0RF Counseling and coordination of Care Pt. Self Management counseling: Mod caffeine/ETOH intake, Nutrition education and improvement, Sleep hygiene, General coping skills and Problem solving Medication management counseling: Effectiveness, Side effects, Dosing range, Duration, Drug interaction and Adherence Diagnosis and Prognosis Counseling: Accuracy of diagnosis, Prognosis over time, Impact of diagnosis on life functions and Adequacy of current interventions Details: I spent 35 minutes reviewing the record, seeing the patient and documenting in the medical record. Counseling provided to the patient/caregiver as outlined below. Addressed patient/caregiver concerns regarding current medication regime including effective adherence. Addressed patient/caregiver concerns regarding diagnosis and prognosis including accuracy of diagnosis, prognosis over time, impact of diagnosis. Addressed patient/caregiver concerns regarding impact of recent stressors. PFSH Surgical History No pertinent past surgical history Family History Mother Mental health disorder Maternal Grandmother Mental health disorder Social History Housing: House Alcohol intake: current Alcohol intake frequency: a few times a week Patient Tobacco Use Status: Former Tobacco user e-Cigarette/Vaping Use: Currently Using Second Hand Smoke Exposure: No service: No Current occupational status: employed Current occupation: [employer] Current occupational exposures/hazards: No Cognitive needs: No Hearing needs: No Vision needs: No Social History: lives w mother, mother's BF and pts 11 yr old daughter; plan to have own apartment in January. 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
--- OUTSIDE RECORDS SUMMARY | 2025-01-08 14:37 | XMS_ITS | Clinical Summary ---
Author Organization [facility] [employer] & [facility] [employer] Address [address] [facility] [place] [address] Care Team Providers Care Cover Operator Name Role Phone No, Pcp SURVEYOR INSTRUMENT ASSISTANT Primary Care Provider Unavailabl e Allergies Active [...] Screening (or Modifier) ([facility]) 2002 SDNJ Screening Reminder: Diamond jude for all adults ([facility]) 2002 Tobacco Smoking Cessation: i n Adults excluding Women: Behavioral and Pharmacotherapy Interventions ([facility]) 2002 DTaP/Tdap/Td Vaccines ([facility]) (1 - Tdap) 09/13/2003 Cervical Cancer Screenin 1-65 yrs of age (or Modifier) 2005 Cervical Cancer Screening: P ap every 3 yrs pts age 21-65 2005 Cervical Cancer: Pap Screeni ng with Modifier timing ([facility] ) 2005 Cervical Cancer: hrHPV alone or with cotesting Pap for Pts 30-65yrs screening every 5yrs ([facility] ) 2005 COVID-19 Vaccine Screening: Initial Series and Booster Status ([facility]) ( - 2023- season) 2024 Flu [...] on file Insurance [employer] Care Teams Cover Operator Relationship Specialty Start Date End Date No, Pcp, SURVEYOR INSTRUMENT ASSISTANT N/A Do not use PCP - General Family Medicine 07/24/20
== END 2025-01-08 14:00 | disposition home or self-care (01) ==
LOC: HO.HOP 13:45
PROVIDERS: PCP Nurse Practitioner Family; Visit Provider Clinical Nurse Specialist Psychiatric/Mental Health
DX: F42.9 Obsessive-compulsive disorder, unspecified (principal)
CPT/HCPCS: 99214

== ENCOUNTER 2025-01-29 14:41 | Outpatient (AMB) | payer BC, SELFPAY ==
--- NOTE | 2025-01-29 14:19 | A.OFFPSYCH_ITS ---
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 She has co-morbid seizure disorder. Pt tolerating the prozac; she is becoming more aware of how often she obsesses. she worrries every day; she ruminates about bad things happening. She denies side effects from prozac; no SI or HI. HX:Pt reports her mind is always busy; she obsesses about a wide range of things. She reports I am never depressed. she reports anxiety every day; frequent panic attacks; she says she keeps her schedule in her head and has mapped out her whole day and how long it will take to do each item. she reports if that routine is interrupted she will get very irritable and or panic. she is very sensitive to noise and activity; she is easily overwhelmed by external stimuli. she will have repetitive thoughts when she is anxious. She reports the anxiety and mental rituals have been a symptoms for years; she was not formerly diagnosed with anxiety until age 16 when she had a severe panic attack and finally told by a doctor that she had anxiety. She reports she has found many ways to cope with the woory and anxiety. She gives the example that in years past she would become so obsessed with something being unsafe that she could not control herself checking or demanding that her ex check such as a roof over a porch. She noticed the sliding door did not close easily and she became convinced that the dolores would collapse despite knowing it wa intact; she checked and made her ex check daily until one day she felt she couldn't stand it and made him remove the roof from the porch; she gave several other examples of the same type of scenario. she says its not quite a bad now but she avoids situations and makes adjustments not to have to experience severe obsessions; she reports she often will have panic attacks that last 30 minutes or more and she just waits them out. She is often miserable. She reports worrying if she has shut a door but works from home and is never very far from home so she will just repeat in her head that she can check it in 20 minutes. Pt has a camera set up for her new dog and she checks it several times day. She has a strong need for quiet and feels less able to cope by the evening. She had her first seizure at age 16 and then none until 11 yrs ago when she was . she has seen a neurologist at [facility] for years but apparently they closed her case due to no in person visit for a year althogh they were actively cross titrating her meds during that year. She has been re-referred but appt pending. she has been dx non-epileptic seizures. she says she has had an MRI that was normal; those records are not available today. She denies a history of suicide attempts Past Psychiatric History: No IPLOC Subjective Subjective Subjective Medication Compliance: Yes Side effects from medications: No Review of Systems Medical Review of Systems: unchanged Mental Status Exam Mental Status Exam Patient Appearance: Well Grooomed and Appropriate Patient Orientation: Person, Place, Time and Situation Level of Consciousness: Awake and Appropriate Patient Behavior: Appropriate and Cooperative Mood Description: Anxious and Expansive Affect Description: Anxious and Expansive Patient Cognition Impaired: No Ability to Follow Directions: Good Speech Pattern: Clear, Excessive and Pressured Memory Description: Intact Hallucinations: None Delusions: Not Present Thought Process: Intact, Racing and Distracted Thought Content: positive for Intact, positive for Obsessional Thoughts and positive for Loose Associations Judgement: Good Telehealth Telehealth Telehealth Platform: Other (please specify) ([email or web address]) Location of provider rendering services: practice address Location of patient: address on file Patient Identification confirmed using: Name, : Yes Telehealth method: video Patient verbally consented to treatment: Yes Patient verbally consented to billing insurance company: Yes Patient informed of any privacy concerns related to visit: Yes Minutes spent on Phone/Video with Pt.: 28 Assessment and Plan Assessment & Plan (1) Obsessive-compulsive disorder with good or fair insight: Status: Acute Code(s): F42.9 - Obsessive-compulsive disorder, unspecified Plan rule out ADHD stop effexor Increase prozac to 40mg daily follow up in 4-6 weeks Medications: Changed From fluoxetine 20 mg PO DAILY 30 days 30 caps 1RF To fluoxetine (Prozac) 40 mg (2 x 20 mg) PO DAILY 60 caps 1RF 30 days Refilled lorazepam (Ativan) 1 mg PO BEDTIME PRN 30 tabs 1RF anxiety Counseling and coordination of Care Pt. Self Management counseling: Mod caffeine/ETOH intake, Nutrition education and improvement, Sleep hygiene, General coping skills and Problem solving Medication management counseling: Effectiveness, Side effects, Dosing range, Duration, Drug interaction and Adherence Diagnosis and Prognosis Counseling: Accuracy of diagnosis, Prognosis over time, Impact of diagnosis on life functions and Adequacy of current interventions Details: I spent 32 minutes reviewing the record, seeing the patient and documenting in the medical record. Counseling provided to the patient/caregiver as outlined below. Addressed patient/caregiver concerns regarding current medication regime including effective adherence. Addressed patient/caregiver concerns regarding diagnosis and prognosis including accuracy of diagnosis, prognosis over time, impact of diagnosis. Addressed patient/caregiver concerns regarding impact of recent stressors. PFSH Surgical History No pertinent past surgical history Family History Mother Mental health disorder Maternal Grandmother Mental health disorder Social History Housing: House Alcohol intake: current Alcohol intake frequency: a few times a week Patient Tobacco Use Status: Former Tobacco user e-Cigarette/Vaping Use: Currently Using Second Hand Smoke Exposure: No service: No Current occupational status: employed Current occupation: [employer] Current occupational exposures/hazards: No Cognitive needs: No Hearing needs: No Vision needs: No Social History: lives w mother, mother's BF and pts 11 yr old daughter; plan to have own apartment in January. 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
--- OUTSIDE RECORDS SUMMARY | 2025-01-29 15:54 | XMS_ITS | Clinical Summary ---
Author Organization [facility] [employer] & [facility] [employer] Complete Address [address] [facility] [address] [place] [address] Care Team Providers Care Art Professor Name Role Phone No, Pcp PLANNING ADVISOR Primary Care Provider Unavailabl e Allergies Active [...] Adults 18 yrs or above (or HM Modifier)([facility]) 2002 Hepatitis C Virus Infection in Adolescents and Adults: Screening (or Modifier) ([facility]) 2002 SDIA Screening Reminder: Diamond jude for all adults ([facility]) 2002 Tobacco Smoking Cessation: i n Adults excluding Women: Behavioral and Pharmacotherapy Interventions ([facility]) 2002 DTaP/Tdap/Td Vaccines ([facility]) (1 [...] for ages 18mos through 64 years (or Modifier)([facility]) 12/26/2024 Zoster/Shingles Vaccine Seri es Screening: Adults aged 18+ yrs (or HM Modifiers)([facility]) (1 of 2) 2034 Pneumococcal Vaccination Scr eening: Pts 0-19 & 19-49 yrs of age ([facility]) Aged Out No longer eligible based on patient's age to complete this topic Medical Devices Not on file Insurance [employer] Care Teams Art Professor Relationship Specialty Start Date End Date No, Pcp, PLANNING ADVISOR N/A Do not use PCP - General Family Medicine 07/24/20
== END 2025-01-29 14:42 | disposition home or self-care (01) ==
LOC: HO.HOP 14:41
PROVIDERS: PCP Nurse Practitioner Family; Visit Provider Clinical Nurse Specialist Psychiatric/Mental Health
DX: F42.9 Obsessive-compulsive disorder, unspecified (principal)
CPT/HCPCS: 99214

== ENCOUNTER 2025-03-12 13:35 | Outpatient (AMB) | payer BC, SELFPAY ==
--- NOTE | 2025-03-12 13:20 | A.OFFPSYCH_ITS ---
Intake Intake Visit Reasons: f/u consultation Motor Polarizer Required: No Allergies penicillin V Allergy (Unknown, Verified 12/30/24 07:20) unknown - childhood Penicillins (PENICILLINS) Allergy (Unknown, Verified 12/30/24 07:20) UNKNOWN Medication List - Last Reconciled 03/12/25 by Tasneem Balderrama APRN divalproex ER 250 mg PO DAILY fluoxetine 40 mg (2 x 20 mg) PO DAILY lorazepam (Ativan) 1 mg PO BEDTIME PRN zonisamide 300 mg PO HPI- Psychiatric Chief Complaint: f/u consultation HPI Narrative: Pt seen via telehealth for follow up on anxiety. She has co-morbid seizure disorder. Pt tolerating the prozac 40mg; she is becoming more aware of how often she obsesses. she worrries every day; she ruminates about bad things happening. She denies side effects from prozac; no SI or HI. HX:Pt reports her mind is always busy; she obsesses about a wide range of things. She reports I am never depressed. she reports anxiety every day; frequent panic attacks; she says she keeps her schedule in her head and has mapped out her whole day and how long it will take to do each item. she reports if that routine is interrupted she will get very irritable and or panic. she is very sensitive to noise and activity; she is easily overwhelmed by external stimuli. she will have repetitive thoughts when she is anxious. She reports the anxiety and mental rituals have been a symptoms for years; she was not formerly diagnosed with anxiety until age 16 when she had a severe panic attack and finally told by a doctor that she had anxiety. She reports she has found many ways to cope with the woory and anxiety. She gives the example that in years past she would become so obsessed with something being unsafe that she could not control herself checking or demanding that her ex check such as a roof over a porch. She noticed the sliding door did not close easily and she became convinced that the dolores would collapse despite knowing it wa intact; she checked and made her ex check daily until one day she felt she couldn't stand it and made him remove the roof from the porch; she gave several other examples of the same type of scenario. she says its not quite a bad now but she avoids situations and makes adjustments not to have to experience severe obsessions; she reports she often will have panic attacks that last 30 minutes or more and she just waits them out. She is often miserable. She reports worrying if she has shut a door but works from home and is never very far from home so she will just repeat in her head that she can check it in 20 minutes. Pt has a camera set up for her new dog and she checks it several times day. She has a strong need for quiet and feels less able to cope by the evening. She had her first seizure at age 16 and then none until 11 yrs ago when she was . she has seen a neurologist at [facility] for years but apparently they closed her case due to no in person visit for a year althogh they were actively cross titrating her meds during that year. She has been re-referred but appt pending. she has been dx non-epileptic seizures. she says she has had an MRI that was normal; those records are not available today. She denies a history of suicide attempts Past Psychiatric History: No IPLOC Subjective Subjective Subjective Medication Compliance: Yes Side effects from medications: No Review of Systems Medical Review of Systems: unchanged Mental Status Exam Mental Status Exam Patient Appearance: Well Grooomed and Appropriate Patient Orientation: Person, Place, Time and Situation Level of Consciousness: Awake and Appropriate Patient Behavior: Appropriate and Cooperative Mood Description: Anxious and Expansive Affect Description: Anxious and Expansive Patient Cognition Impaired: No Ability to Follow Directions: Good Speech Pattern: Clear, Excessive and Pressured Memory Description: Intact Hallucinations: None Delusions: Not Present Thought Process: Intact, Racing and Distracted Thought Content: positive for Intact, positive for Obsessional Thoughts and positive for Loose Associations Judgement: Good Telehealth Telehealth Telehealth Platform: [facility] Location of provider rendering services: practice address Location of patient: address on file Patient Identification confirmed using: Name, : Yes Telehealth method: video Patient verbally consented to treatment: Yes Patient verbally consented to billing insurance company: Yes Patient informed of any privacy concerns related to visit: Yes Minutes spent on Phone/Video with Pt.: 32 Assessment and Plan Assessment & Plan (1) Obsessive-compulsive disorder with good or fair insight: Status: Acute Code(s): F42.9 - Obsessive-compulsive disorder, unspecified Plan increase prozac to 60mg daily Medications: Changed From fluoxetine 40 mg (2 x 20 mg) PO DAILY 180 caps 1RF To fluoxetine 60 mg (3 x 20 mg) PO DAILY 270 caps 1RF 90 days Counseling and coordination of Care Pt. Self Management counseling: Exercise, Maintenance-social rhythm, Mindfulness, Mod caffeine/ETOH intake, Nutrition education and improvement, Sleep hygiene, Behavior activation, General coping skills and Problem solving Medication management counseling: Effectiveness, Side effects, Dosing range, Duration, Drug interaction and Adherence Diagnosis and Prognosis Counseling: Accuracy of diagnosis, Prognosis over time, Impact of diagnosis on life functions, Impact of family relationship, Problematic behaviors secondary to diagnosis and Adequacy of current interventions Details: I spent 40 minutes reviewing the record, seeing the patient and documenting in the medical record. Counseling provided to the patient/caregiver as outlined below. Addressed patient/caregiver concerns regarding current medication regime including effective adherence. Addressed patient/caregiver concerns regarding diagnosis and prognosis including accuracy of diagnosis, prognosis over time, impact of diagnosis. Addressed patient/caregiver concerns regarding impact of recent stressors. [facility] Surgical History No pertinent past surgical history Family History Mother Mental health disorder Maternal Grandmother Mental health disorder Social History Housing: House Alcohol intake: current Alcohol intake frequency: a few times a week Patient Tobacco Use Status: Former Tobacco user e-Cigarette/Vaping Use: Currently Using Second Hand Smoke Exposure: No service: No Current occupational status: employed Current occupation: [employer] Current occupational exposures/hazards: No Cognitive needs: No Hearing needs: No Vision needs: No Social History: lives w mother, mother's BF and pts 11 yr old daughter; plan to have own apartment in January. 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
--- OUTSIDE RECORDS SUMMARY | 2025-03-12 17:11 | XMS_ITS | Clinical Summary ---
Author Organization [facility] [facility] [employer] Address [address] [facility] [address] Care Team Providers Care Physician Assistant Primary Care Name Role Phone No, Pcp CATALOGUE AND SPECIAL PRODUCTS MANAGER Primary Care Provider Unavailabl e Allergies [...] Adults 18 yrs or above (or HM Modifier)([facility]) 2002 Hepatitis C Virus Infection in Adolescents and Adults: Screening (or Modifier) ([facility]) 2002 SDCO Screening Reminder: Diamond jude for all adults ([facility]) 2002 Tobacco Smoking Cessation: i n Adults excluding Women: Behavioral and Pharmacotherapy Interventions ([facility] ) 2002 DTaP/Tdap/Td Vaccines ([facility]) (1 - Tdap) 09/13/2003 Cervical Cancer Screenin 1-65 yrs of age (or Modifier) 2005 Cervical Cancer Screening: P ap every 3 yrs pts age 21-65 2005 Cervical Cancer: Pap Screeni ng with Modifier timing ([facility] ) 2005 Cervical Cancer: hrHPV alone or with cotesting Pap for Pts 30-65yrs screening every 5yrs ([facility] ) 2005 Flu Vaccination: Yearly for ages 18mos through 64 years (or Modifier)([facility]) 12/26/2024 COVID-19 Vaccine Screening: Initial Series and Booster Status ([facility]) ( - 2023- season) 2025 Zoster/Shingles Vaccine Seri es Screening: Adults aged 18+ yrs (or HM Modifiers)([facility]) (1 of 2) 2034 Pneumococcal Vaccination Scr eening: Pts 0-19 & 19-49 yrs of age ([facility]) Aged Out No longer eligible based on patient's age to complete this topic Medical Devices Not on file Insurance [employer] Care Teams Physician Assistant Primary Care Relationship Specialty Start Date End Date No, Pcp, CATALOGUE AND SPECIAL PRODUCTS MANAGER N/A Do not use PCP - General Family Medicine 07/24/20
== END 2025-03-12 13:36 | disposition home or self-care (01) ==
LOC: HO.HOP 13:35
PROVIDERS: PCP Nurse Practitioner Family; Visit Provider Clinical Nurse Specialist Psychiatric/Mental Health
DX: F42.9 Obsessive-compulsive disorder, unspecified (principal)
CPT/HCPCS: 99214